=== PATIENT | female | born 1990 | race Two or more races ===

== ENCOUNTER 2018-10-19 16:06 | Emergency (ER) | payer OTHER ==
[~2018-10-19] VITALS: Ht 175.3 cm; Wt 90.7 kg
[2018-10-19 16:25] VITALS: BP 130/91
[2018-10-19] MEDS ORDERED: Cefepime HCl 1 GM in NS 55 ML IV SCH (16:30)
[2018-10-19] MEDS ORDERED: Ertapenem 1 GM in NS 55 ML IV ONE (16:45)
--- NOTE | 2018-10-19 16:51 | Emergency Room Report ---
History of Present Illness General Chief Complaint: Pain Source: Patient Present Illness HPI Patient states that she has had a nephrostomy tube in her left kidney for the past 10 years. She has a history of UVJ obstruction. She states that she was admitted to another hospital 3 days ago. She was found to have Escherichia coli bacteremia. She states that she had a PICC line in place but states she noted that the insertion site was red and swollen and it was bothering her and so she removed the PICC line in her left arm. She states that it looked infected and she has had infected PICC line's previously. She states that she is also had nausea and vomiting and a headache over the past day. She was supposed to be getting ertapenem via her PICC line for the past 2 days but because she removed the PICC line she has not gotten the ertapenem. She has no other complaints. Allergies: Coded Allergies: No Known Allergies (Unverified , 10/19/18) Patient History Past Medical History: none, see triage record Social History: Denies: smoking, alcohol use, drug use Last Menstrual Period: 10/16/18 Reviewed Nursing Documentation: PMH: Agreed; PSxH: Agreed Nursing Documentation-PMH Hx Dialysis: No - nephrostomy tube on left side Review of Systems All Other Systems: negative except mentioned in HPI Physical Exam Vital Signs Date Time Temp Pulse Resp B/P (MAP) Pulse Ox O2 Delivery O2 Flow Rate FiO2 10/19/18 16:15 97.9 95 18 130/91 99 Room Air Sp02 EP Interpretation: reviewed, normal General Appearance: no apparent distress, alert, GCS 15, non-toxic Head: normocephalic, atraumatic Eyes: bilateral eye normal inspection, bilateral eye PERRL ENT: hearing grossly normal, normal pharynx, no angioedema, normal voice Neck: full range of motion, supple/symm/no masses Respiratory: chest non-tender, lungs clear, normal breath sounds, no respiratory distress, no retraction, no accessory muscle use, speaking full sentences Cardiovascular #1: regular rate, rhythm, no edema Gastrointestinal: normal bowel sounds, non tender, soft, non-distended, no guarding, no rebound Rectal: deferred Genitourinary: other - Nephrostomy tube in place draining clear urine. Musculoskeletal: back normal, gait/station normal, normal range of motion, non- tender Neurologic: alert, oriented x3, responsive, motor strength/tone normal, sensory intact, speech normal Psychiatric: judgement/insight normal, memory normal, mood/affect normal, no suicidal/homicidal ideation Skin: normal color, no rash, warm/dry, well hydrated Medical Decision Making Diagnostic Impression: Primary Impression: Flank pain Additional Impressions: Nausea Diarrhea ER Course This patient removed her own PICC line. She states that she has positive blood cultures for another facility. The patient's evaluation here in the emergency Department is benign. Laboratory workup to include a CBC, CMP and urinalysis are unremarkable. The patient is afebrile well-appearing and nontoxic. The patient was given the ertapenem dose for today. I offered the patient admission to the hospital so that she can get PICC line placement tomorrow. However, she declined stating that she will go to her usual hospital and obtain a PICC line tomorrow morning. She states she feels well and does not want to be admitted to the hospital at this time. Given her benign workup and nontoxic evaluation I felt that this was appropriate. I suspect the patient's nausea and diarrhea is secondary to medication side effects. The patient is given close return precautions and follow-up instructions. Please note that this Emergency Department Report was dictated using Sonocinecement tester assistant technology software, occasionally this can lead to erroneous entry secondary to interpretation by the dictation equipment. Laboratory Tests Test 10/19/18 16:35 10/19/18 16:50 10/19/18 19:08 White Blood Count 6.4 K/UL (4.8-10.8) Red Blood Count 4.26 M/UL (4.20-5.40) Hemoglobin 10.5 G/DL (12.0-16.0) L Hematocrit 32.6 % (37.0-47.0) L Mean Corpuscular Volume 76 FL (80-99) L Mean Corpuscular Hemoglobin 24.6 PG (27.0-31.0) L Mean Corpuscular Hemoglobin Concent 32.1 G/DL (32.0-36.0) Red Cell Distribution Width 13.6 % (11.6-14.8) Platelet Count 430 K/UL (150-450) Mean Platelet Volume 5.3 FL (6.5-10.1) L Neutrophils (%) (Auto) 59.7 % (45.0-75.0) Lymphocytes (%) (Auto) 26.8 % (20.0-45.0) Monocytes (%) (Auto) 8.3 % (1.0-10.0) Eosinophils (%) (Auto) 3.9 % (0.0-3.0) H Basophils (%) (Auto) 1.3 % (0.0-2.0) Sodium Level 137 MMOL/L (136-145) Potassium Level 3.6 MMOL/L (3.5-5.1) Chloride Level 102 MMOL/L (98-107) Carbon Dioxide Level 25 MMOL/L (21-32) Anion Gap 10 mmol/L (5-15) Blood Urea Nitrogen 13 mg/dL (7-18) Creatinine 0.7 MG/DL (0.55-1.30) Estimate Glomerular Filtration Rate > 60 mL/min (>60) Glucose Level 101 MG/DL (74-106) Lactic Acid Level 2.00 mmol/L (0.4-2.0) Pending Calcium Level 8.3 MG/DL (8.5-10.1) L Phosphorus Level 3.2 MG/DL (2.5-4.9) Magnesium Level 1.7 MG/DL (1.8-2.4) L Total Bilirubin 0.2 MG/DL (0.2-1.0) Aspartate Amino Transferase (AST) 20 U/L (15-37) Alanine Aminotransferase (ALT) 17 U/L (12-78) Alkaline Phosphatase 79 U/L (46-116) Total Creatine Kinase 56 U/L (26-308) Creatine Kinase MB 0.5 NG/ML (0.0-3.6) Creatine Kinase MB Relative Index 0.8 Troponin I 0.000 ng/mL (0.000-0.056) Total Protein 8.0 G/DL (6.4-8.2) Albumin 3.5 G/DL (3.4-5.0) Globulin 4.5 g/dL Albumin/Globulin Ratio 0.8 (1.0-2.7) L Urine Color Pale yellow Urine Appearance Clear Urine pH 6.5 (4.5-8.0) Urine Specific [place] 1.010 (1.005-1.035) Urine Protein 2+ (NEGATIVE) H Urine Glucose (UA) Negative (NEGATIVE) Urine Ketones Negative (NEGATIVE) Urine Blood 3+ (NEGATIVE) H Urine Nitrite Negative (NEGATIVE) Urine Bilirubin Negative (NEGATIVE) Urine Urobilinogen Normal MG/DL (0.0-1.0) Urine Leukocyte Esterase 2+ (NEGATIVE) H Urine RBC 2-4 /HPF (0 - 2) H Urine WBC 2-4 /HPF (0 - 2) Urine Squamous Epithelial Cells None /LPF (NONE/OCC) Urine Bacteria Occasional /HPF (NONE) EKG Diagnostic Results Rate: normal Rhythm: NSR ST Segments: no acute changes Rhythm Strip Diag. Results EP Interpretation: yes Rate: 80's Rhythm: NSR, no PVC's, no ectopy Last Vital Signs Date Time Temp Pulse Resp B/P (MAP) Pulse Ox O2 Delivery O2 Flow Rate FiO2 10/19/18 16:15 97.9 95 18 130/91 99 Room Air Status: improved Disposition: HOME, SELF-CARE Condition: Improved Scripts No Active Prescriptions or Reported Meds Sade Rome DO Oct 19, 2018 16:51
[2018-10-19 17:09] LABS: BASOPHILS % (AUTO) 1.3 % (0.0-2.0); EOSINOPHILS % (AUTO) 3.9 % (0.0-3.0); HEMATOCRIT 32.6 % (37.0-47.0); HEMOGLOBIN 10.5 G/DL (12.0-16.0); LYMPHOCYTES % (AUTO) 26.8 % (20.0-45.0); MEAN CORPUSCULAR VOLUME 76 FL (80-99); MONOCYTES % (AUTO) 8.3 % (1.0-10.0); NEUTROPHILS % (AUTO) 59.7 % (45.0-75.0); PLATELET COUNT 430 K/UL (150-450); RED BLOOD COUNT 4.26 M/UL (4.20-5.40); RED CELL DISTRIBUTION WIDTH 13.6 % (11.6-14.8); WHITE BLOOD COUNT 6.4 K/UL (4.8-10.8)
[2018-10-19 17:26] LABS: ANION GAP 10 mmol/L (5-15); BLOOD UREA NITROGEN 13 mg/dL (7-18); CALCIUM 8.3 MG/DL (8.5-10.1); CARBON DIOXIDE 25 MMOL/L (21-32); CHLORIDE 102 MMOL/L (98-107); CREATININE 0.7 MG/DL (0.55-1.30); POTASSIUM 3.6 MMOL/L (3.5-5.1); SODIUM 137 MMOL/L (136-145)
[2018-10-19 17:33] LABS: APPEARANCE,URINE CLEAR; BILIRUBIN, URINE NEGATIVE (NEGATIVE); COLOR,URINE PALE YELLOW; GLUCOSE, URINE (UA) NEGATIVE (NEGATIVE); KETONES,URINE NEGATIVE (NEGATIVE); LEUKOCYTE ESTERASE ,URINE 2+ (NEGATIVE); NITRITE,URINE NEGATIVE (NEGATIVE); PH,URINE 6.5 (4.5-8.0); PROTEIN,URINE 2+ (NEGATIVE); UROBILINOGEN,URINE NORMAL MG/DL (0.0-1.0)
[2018-10-19 17:40] LABS: ALANINE AMINOTRANSFERASE 17 U/L (12-78); ALBUMIN 3.5 G/DL (3.4-5.0); ALBUMIN/GLOBULIN RATIO 0.8 (1.0-2.7); ALKALINE PHOSPHATASE 79 U/L (46-116); ASPARTATE AMINO TRANSFERASE 20 U/L (15-37); BILIRUBIN,TOTAL 0.2 MG/DL (0.2-1.0); CKMB 0.5 NG/ML (0.0-3.6); CREATINE KINASE 56 U/L (26-308); PHOSPHORUS 3.2 MG/DL (2.5-4.9)
[2018-10-19 18:20] VITALS: BP 126/59
[2018-10-19] MEDS ORDERED: Ketorolac 30mg Inj IV ONE (18:30)
[2018-10-19 19:35] VITALS: BP 124/66
[2018-10-19 19:55] VITALS: BP 124/66
== END 2018-10-19 19:59 | disposition home or self-care (01) ==
LOC: EMR 18:16
DX: R10.9 Unspecified abdominal pain (principal); R11.2 Nausea with vomiting, unspecified; R19.7 Diarrhea, unspecified; R51 Headache; Z93.6 Other artificial openings of urinary tract status
CPT/HCPCS: 36415; 80053; 81003; 82550; 82553; 83605; 83735; 84100; 84484; 85025; 87040; 93005; 96361; 96365; 96375; 99284; J1335; J1885

== ENCOUNTER 2019-02-03 11:59 | Emergency (ER) | payer OTHER ==
[~2019-02-03] VITALS: Ht 175.3 cm; Wt 104.3 kg
[2019-02-03] MEDS ORDERED: Acetaminophen 500mg (ES) tab ORAL ONE (13:00)
--- NOTE | 2019-02-03 13:10 | NUR ---
ED Nurse Note: Pt from home came in due to left flank that radiates to her LLQ x 3 days with vomiting. Denies diarrhea. Pt is AAO x4, ambulatory with non labored breathing.
--- NOTE | 2019-02-03 13:31 | NUR ---
ED Nurse Note: RN established an IV access but unable to draw blood. Called lab for blood draw.
[2019-02-03 14:14] LABS: APPEARANCE,URINE CLEAR; BILIRUBIN, URINE NEGATIVE (NEGATIVE); COLOR,URINE PALE YELLOW; GLUCOSE, URINE (UA) NEGATIVE (NEGATIVE); KETONES,URINE NEGATIVE (NEGATIVE); LEUKOCYTE ESTERASE ,URINE 1+ (NEGATIVE); NITRITE,URINE NEGATIVE (NEGATIVE); PH,URINE 7 (4.5-8.0); PROTEIN,URINE 1+ (NEGATIVE); UROBILINOGEN,URINE NORMAL MG/DL (0.0-1.0)
[2019-02-03 14:40] LABS: BASOPHILS % (AUTO) 2.9 % (0.0-2.0); EOSINOPHILS % (AUTO) 6.8 % (0.0-3.0); HEMATOCRIT 31.4 % (37.0-47.0); HEMOGLOBIN 9.8 G/DL (12.0-16.0); LYMPHOCYTES % (AUTO) 32.8 % (20.0-45.0); MEAN CORPUSCULAR VOLUME 74 FL (80-99); MONOCYTES % (AUTO) 10.4 % (1.0-10.0); NEUTROPHILS % (AUTO) 47.1 % (45.0-75.0); PLATELET COUNT 217 K/UL (150-450); RED BLOOD COUNT 4.27 M/UL (4.20-5.40); RED CELL DISTRIBUTION WIDTH 21.8 % (11.6-14.8); WHITE BLOOD COUNT 4.1 K/UL (4.8-10.8)
[2019-02-03 15:04] LABS: ANION GAP 12 mmol/L (5-15); BLOOD UREA NITROGEN 9 mg/dL (7-18); CALCIUM 8.1 MG/DL (8.5-10.1); CARBON DIOXIDE 21 MMOL/L (21-32); CHLORIDE 105 MMOL/L (98-107); CREATININE 0.5 MG/DL (0.55-1.30); SODIUM 138 MMOL/L (136-145)
[2019-02-03 15:09] LABS: ALANINE AMINOTRANSFERASE 13 U/L (12-78); ALBUMIN 3.3 G/DL (3.4-5.0); ALBUMIN/GLOBULIN RATIO 1.1 (1.0-2.7); ALKALINE PHOSPHATASE 64 U/L (46-116); ASPARTATE AMINO TRANSFERASE 22 U/L (15-37); BILIRUBIN,TOTAL 0.2 MG/DL (0.2-1.0)
--- NOTE | 2019-02-03 15:14 | NUR ---
HAND-OFF: Report given to Rajeev FOX.
--- NOTE | 2019-02-03 15:15 | NUR ---
ED Nurse Note: REceived patient from RUDDY Chu, patient at no distress at this time, waiting for ultrasound
[2019-02-03 15:23] VITALS: BP 114/72
--- NOTE | 2019-02-03 16:15 | NUR ---
ED Nurse Note: Called X-ray for ultrasuond, states they will call back when an instructional coach tech is available
--- NOTE | 2019-02-03 19:11 | Emergency Room Report ---
History of Present Illness General Chief Complaint: Abdominal Pain Source: Patient (Elisa Salas) Present Illness HPI 28-year-old female with significant past medical history of chronic kidney disease and a tube insertion here complaining of diffuse abdominal pain 3 days mainly in the left lower quadrant. Patient raises concerns about possible as she was last sexually active 3 weeks ago and her last menstrual period was January 03. Patient woke up this morning with vomiting and 3 bouts of nonbloody diarrhea. Complains of low-grade fever denies all URI symptoms. Complaints of urinary frequency however denies dysuria hematuria. Denies vaginal spotting, clotting, bleeding. Denies recent travel. Patient makes regular visits with her photo optics technician and urologist. Has not been given any antibiotics recently. Denies syncope, dizziness, headache, SOB, chest pain palpitations. (Elisa Salas) Allergies: Coded Allergies: No Known Allergies (Unverified , 10/19/18) Patient History Past Medical History: see triage record, dialysis Past Surgical History: none Pertinent Family History: none Last Menstrual Period: JAN 03, 2019 Now: Yes : 2 Reviewed Nursing Documentation: PMH: Agreed; PSxH: Agreed (Elisa Salas) Nursing Documentation-PMH Past Medical History: No History, Except For Hx Dialysis: No - nephrostomy tube on left side (Elisa Salas) Review of Systems All Other Systems: negative except mentioned in HPI (Elisa Salas) Physical Exam Vital Signs Date Time Temp Pulse Resp B/P (MAP) Pulse Ox O2 Delivery O2 Flow Rate FiO2 02/03/19 12:28 98.2 89 22 104/74 98 Room Air Sp02 EP Interpretation: reviewed, normal General Appearance: normal inspection, well appearing, no apparent distress Head: normocephalic Eyes: bilateral eye normal inspection, bilateral eye PERRL ENT: normal ENT inspection, normal pharynx Neck: normal inspection, full range of motion, supple Respiratory: normal inspection, chest non-tender, lungs clear, no rhonchi, no wheezing Cardiovascular #1: normal inspection, normal peripheral pulses, no edema, no murmur, normal capillary refill Gastrointestinal: no mass, no organomegaly, no peritonitis, no bruit, non- distended, no guarding, no pulsatile mass, rebound - left lower quadr Rectal: deferred Genitourinary: no CVA tenderness, other - unclogged tube left flank Musculoskeletal: normal inspection, back normal, digits/nails normal Neurologic: normal inspection, alert, oriented x3 Psychiatric: normal inspection, judgement/insight normal, mood/affect normal Skin: normal inspection, normal color, no rash, warm/dry Lymphatic: normal inspection, no adenopathy (Elisa Salas) Medical Decision Making PA Attestation Diagnoses and treatment plans are reviewed and discussed with my supervising physician Dr. Kevin (Elisa Salas) PA Attestation Please refer to the history and documentation for the full input At this time patient's workup was also reviewed by myself Abdominal ultrasound on the renal aspect does not reveal any hydronephrosis Pelvic ultrasound was discussed with food equipment service technician does not show any obvious large amount of free fluid However given the patient's low beta Quant level and ectopic cannot be fully ruled out at this time Patient otherwise does appear comfortable ambulating in the emergency room without any active discomfort she requires close repeat beta Quant level along with ultrasonography by primary physician the next several days (Antionette Kevin DO) Diagnostic Impression: Primary Impression: Additional Impressions: UTI (urinary tract infection) Iron deficiency anemia Renal function impairment Viral gastroenteritis ER Course 28-year-old female with significant past medical history of chronic kidney disease and a tube insertion here complaining of diffuse abdominal pain 3 days mainly in the left lower quadrant. Patient raises concerns about possible as she was last sexually active 3 weeks ago and her last menstrual period was January 03. Patient woke up this morning with vomiting and 3 bouts of nonbloody diarrhea. Complains of low-grade fever denies all URI symptoms. Complaints of urinary frequency however denies dysuria hematuria. Denies vaginal spotting, clotting, bleeding. Denies recent travel. Patient makes regular visits with her photo optics technician and urologist. Has not been given any antibiotics recently. Denies syncope, dizziness, headache, SOB, chest pain palpitations. Ddx considered but are not limited to ectopic , UTI, pylonephritis, hydronephrosis, normal IUP, viral gastroentritis Vital signs: are WNL, pt. is afebrile H&PE are most consistent with viral gastroentritis, UTI, IUP, iron deficiency anemia, ORDERS ferrous sulfate, macrobid ED INTERVENTIONS: NS bolus, tylenol, DISCHARGE: At this time pt. is stable for d/c to home. Will provide printed patient care instructions, and any necessary prescriptions. Care plan and follow up instructions have been discussed with the patient prior to discharge. f/u with OB in 48 hours for repeat beta Hcg and OB US Hgb 9, positive leuk UA, elevated lipase, posiitve beta HCG (Elisa Salas) CT/MRI/US Diagnostic Results CT/MRI/US Diagnostic Results : Imaging Test Ordered: pelvic and renal Impression US PELVIS: Uterus appears heterogeneous, nonspecific. Endometrium is within normal limits for patient's age. Bilateral ovaries are not enlarged. No ovarian torsion. Trace free fluid, possibly physiologic. US ABDOMEN: Stented left kidney. No hydronephrosis or nephrolithiasis bilaterally. (Elisa Salas) Last Vital Signs Date Time Temp Pulse Resp B/P (MAP) Pulse Ox O2 Delivery O2 Flow Rate FiO2 02/03/19 15:23 98.2 67 22 114/72 98 Room Air (Elisa Salas) Disposition: HOME, SELF-CARE Condition: Stable Scripts Ferrous Sulfate* (FERROUS SULFATE*) 325 Mg Tablet 325 MG ORAL TWICE A DAY, #60 TAB 0 Refills Prov: Elisa Salas 02/03/19 Nitrofurantoin Monohyd/M-Cryst* (MACROBID 100 MG*) 100 Mg Capsule 100 MG ORAL EVERY 12 HOURS for 7 Days, #14 CAP Prov: Elisa Salas 02/03/19 Referrals: [facility],REFERRING (PCP) Patient Instructions: Abdominal Pain During , Iron Deficiency Anemia, Adult, Ovarian Cyst, [id number] Additional Instructions: follow up with OB and photo optics technician/ urologist Elisa Salas Feb 03, 2019 19:11 Antionette Kevin DO Feb 03, 2019 19:20
[2019-02-03] MEDS ORDERED: NITROFURANTOIN100 M2 ORAL (19:13)
[2019-02-03] MEDS ORDERED: FERROUS SULFAT325 MG ORAL (19:13)
[2019-02-03 19:30] VITALS: BP 114/72
--- NOTE | 2019-02-03 19:30 | NUR ---
ER DISCHARGE NOTE: Patient is cleared to be discharged per ERMD, pt is aox4, on room air, with stable vital signs. pt was given dc and prescription instructions, pt was able to verbalize understanding, pt id band and iv site removed without complications. pt is able to ambulate with steady gait. pt took all belongings.
== END 2019-02-03 19:30 | disposition home or self-care (01) ==
LOC: EMR 15:20
DX: O23.41 Unspecified infection of urinary tract in pregnancy, first trimester (principal); Z3A.00 Weeks of gestation of pregnancy not specified; O99.011 Anemia complicating pregnancy, first trimester; D50.9 Iron deficiency anemia, unspecified; O99.611 Diseases of the digestive system complicating pregnancy, first trimester; A08.4 Viral intestinal infection, unspecified; N28.9 Disorder of kidney and ureter, unspecified
CPT/HCPCS: 36415; 76770; 76801; 76830; 80053; 81003; 81025; 83690; 84702; 85025; 86710; 96360; 99284

== ENCOUNTER 2020-12-10 16:22 | Emergency (ER) | payer OTHER ==
[~2020-12-10] VITALS: Ht 175.3 cm; Wt 111.1 kg
[~2020-12-10 16:22] MED LIST: FERROUS SULFAT325 MG ORAL; NITROFURANTOIN100 M2 ORAL
[2020-12-10] MEDS ORDERED: Ketorolac 30mg Inj IV ONE (16:45)
--- NOTE | 2020-12-10 16:50 | Emergency Room Report ---
History of Present Illness General Chief Complaint: Abdominal Pain Source: Patient Present Illness HPI Patient is a 30-year-old obese female history of kidney stones who presents to the ER complaining of left-sided flank pain for the past 2 days. She complains of nausea and vomiting. She denies any fever or chills. She denies any diarrhea. She complains of dysuria and occasional streaks of blood. She denies any chest pain or shortness of breath. She states that she tried taking [place] at home but complains of persistent pain. Allergies: Coded Allergies: No Known Allergies (Unverified , 10/19/18) COVID-19 Screening Contact w/high risk pt: No Experienced COVID-19 symptoms?: No COVID-19 Testing performed LITHOGRAPHIC PHOTOGRAPHER APPRENTICE: No Patient History Last Menstrual Period: 11/20 Now: No Reviewed Nursing Documentation: PMH: Agreed; PSxH: Agreed Nursing Documentation-PMH Past Medical History: No History, Except For Hx Dialysis: No - nephrostomy tube on left side Review of Systems All Other Systems: negative except mentioned in HPI Physical Exam Vital Signs Date Time Temp Pulse Resp B/P (MAP) Pulse Ox O2 Delivery O2 Flow Rate FiO2 12/10/20 16:32 98.4 91 18 120/87 (98) 96 Sp02 EP Interpretation: reviewed, normal General Appearance: alert, GCS 15, non-toxic, mild distress Head: normocephalic, atraumatic Eyes: bilateral eye normal inspection, bilateral eye PERRL ENT: hearing grossly normal, normal pharynx, no angioedema, normal voice Neck: full range of motion, supple/symm/no masses Respiratory: chest non-tender, lungs clear, normal breath sounds, speaking full sentences Cardiovascular #1: regular rate, rhythm, no edema Gastrointestinal: normal bowel sounds, non tender, soft, non-distended, no guarding, no rebound Rectal: deferred Genitourinary: CVA tenderness (L) Musculoskeletal: normal range of motion Neurologic: cloth finishing range back tender III-XII nml as tested, oriented x3 Psychiatric: no suicidal/homicidal ideation Skin: no rash Lymphatic: no adenopathy Medical Decision Making Diagnostic Impression: Primary Impression: Flank pain Additional Impression: Hydronephrosis ER Course Patient's UA is negative. No signs of infection or blood. Patient's CT demonstrates hydronephrosis on the left side with no stones. This is probably sequela from her prior kidney stone which she states is on the left side. I have given the patient a copy of her CAT scan results. She states she has a urologist that she can follow-up with. I have given her intramuscular morphine which helped with her pain. She will be given a prescription for Percocet. After discussing risks and benefits of further diagnostics, treatment plans, as well as indications for and risks of admission, the patient is agreeable to being discharged home. I have explained that their evaluation and treatment in the emergency department today is an important step towards them achieving better health but that their evaluation today is not intended to replace further evaluation and treatment by a physician in their local clinic. I have explained that while the current findings suggest no immediate life threatening emergency they will require further evaluation and treatment by a physician of their choice in their area. They understand that it will be necessary for them to review the final reports of their ED visit with their clinic physician. We have reviewed indications for return to the Emergency Department. I have explained that additional time may need to pass and/or additional testing as an outpatient may be necessary before a definitive diagnosis can be made. They tell me they are willing to follow up as instructed within the timeframe I recommend. They appear to understand what we discussed. Additionally they understand that if they are unable to be seen by an outpatient physician they are welcome, and in fact should, return to the Emergency Department for a repeat evaluation. The patient is stable at time of discharge. Laboratory Tests Test 12/10/20 16:50 Urine Color Pale yellow Urine Appearance Clear Urine pH 7 (4.5-8.0) Urine Specific [place] 1.010 (1.005-1.035) Urine Protein Negative (NEGATIVE) Urine Glucose (UA) Negative (NEGATIVE) Urine Ketones Negative (NEGATIVE) Urine Blood Negative (NEGATIVE) Urine Nitrite Negative (NEGATIVE) Urine Bilirubin Negative (NEGATIVE) Urine Urobilinogen Normal MG/DL (0.0-1.0) Urine Leukocyte Esterase Negative (NEGATIVE) Urine HCG, Qualitative Negative (NEGATIVE) Urine Opiates Screen Negative (NEGATIVE) Urine Barbiturates Screen Negative (NEGATIVE) Phencyclidine (PCP) Screen Negative (NEGATIVE) Urine Amphetamines Screen Negative (NEGATIVE) Urine Benzodiazepines Screen Negative (NEGATIVE) Urine Cocaine Screen Negative (NEGATIVE) Urine Marijuana (THC) Screen Negative (NEGATIVE) Last Vital Signs Date Time Temp Pulse Resp B/P (MAP) Pulse Ox O2 Delivery O2 Flow Rate FiO2 12/10/20 16:32 98.4 91 18 120/87 (98) 96 Disposition: HOME, SELF-CARE Condition: Stable Scripts Oxycodone/Acetaminophen 5-325* (PERCOCET 5-325 MG TABLET*) 1 Each Tablet 1 TAB ORAL Q6H PRN for For Pain, #12 TAB 0 Refills Prov: Yue Luna M.D. 12/10/20 Additional Instructions: The patient was provided with discharge instructions, notified to follow-up with a primary care doctor and or specialist in the next 24-48 hours, and to return to the ED if they have worsening of their symptoms. Please note that this report is being documented using [employer]zoom technology. This can lead to erroneous entry secondary to incorrect interpretation by the dictating instrument. Yue Luna M.D. Dec 10, 2020 16:50
[2020-12-10] MEDS ORDERED: fentaNYL 100 mcg/2 mL IV ONE (17:00)
[2020-12-10 17:30] VITALS: BP 114/76
--- NOTE | 2020-12-10 17:53 | Diagnostic Imaging Report ---
EXAM: CT Abdomen and Pelvis Without Intravenous Contrast CLINICAL HISTORY: ABD PAIN TECHNIQUE: Axial computed tomography images of the abdomen and pelvis without intravenous contrast. CTDI is 19.1 mGy and DLP is 1088.1 mGy-cm. One or more of the following dose reduction techniques were used: automated exposure control, adjustment of the mA and/or kV according to patient size, use of iterative reconstruction technique. COMPARISON: 02/03/2019. FINDINGS: Lung bases: Minimal scarring and subsegmental atelectasis at the lung bases. Minimal subsegmental atelectasis at the lingular region. Pleural space: No pleural effusions. Heart: Heart is normal in size. ABDOMEN: Liver: The liver and the spleen are normal in contour. Gallbladder and bile ducts: Status post cholecystectomy. No ductal dilation. Pancreas: See below. Spleen: See above. Adrenals: The adrenal glands, the head, body, tail of the pancreas are unremarkable. Kidneys and ureters: Right kidney is unremarkable. Moderate to severe left hydronephrosis. Dilatation of the left collecting system. Stomach and bowel: Mild to moderate quantity of ingested material in the stomach. Moderate quantity of stool throughout the colon. No obstruction. No mucosal thickening. PELVIS: Appendix: The appendix is seen on coronal images 51 through 53 and is unremarkable. Bladder: Bladder is underdistended. No stones. Reproductive: Unremarkable as visualized. ABDOMEN and PELVIS: Intraperitoneal space: Unremarkable. No free air. No significant fluid collection. Bones/joints: No spondylolysis or spinal listhesis appeared Sacrum and coccyx are unremarkable. No acute fracture. No dislocation. Soft tissues: Ischiorectal fat is clean. Vasculature: Unremarkable. No abdominal aortic aneurysm. Lymph nodes: No pelvic or inguinal lymphadenopathy. IMPRESSION: 1. Status post cholecystectomy. 2. Moderate hydronephrosis of the left kidney. Dilatation of the left renal pelvis. No renal calculus is noted. Findings may be a manifestation of previous obstruction of the left kidney. Left ureteral pelvic junction obstruction cannot be entirely excluded however. I favor the possibility that the left kidney had been previously obstructed and the left renal collecting system remains patulous. The left kidney had been stented on the previous ultrasound study of 02/03/2019. 3. Appendix is unremarkable. 4. No bowel obstruction.
[2020-12-10 17:57] LABS: APPEARANCE,URINE CLEAR; BILIRUBIN, URINE NEGATIVE (NEGATIVE); COLOR,URINE PALE YELLOW; GLUCOSE, URINE (UA) NEGATIVE (NEGATIVE); KETONES,URINE NEGATIVE (NEGATIVE); LEUKOCYTE ESTERASE ,URINE NEGATIVE (NEGATIVE); NITRITE,URINE NEGATIVE (NEGATIVE); PH,URINE 7 (4.5-8.0); PROTEIN,URINE NEGATIVE (NEGATIVE); UROBILINOGEN,URINE NORMAL MG/DL (0.0-1.0)
[2020-12-10 18:18] VITALS: BP 110/58
--- NOTE | 2020-12-10 18:19 | NUR ---
ED Nurse Note: pt extremly hard stick. attempted several times with 2 other RN's. aware and is going to give meds IM.
[2020-12-10] MEDS ORDERED: PERCOCET 5-3251 EACH ORAL (18:23)
[2020-12-10] MEDS ORDERED: Morphine Sulfate 2mg/ml Inj(IV/IM USE ONLY) IM ONE (18:30)
--- NOTE | 2020-12-10 18:42 | NUR ---
ER DISCHARGE NOTE: Patient is cleared to be discharged per ERMD, pt is aox4, on room air, with stable vital signs. pt was given dc and prescription instructions, pt was able to verbalize understanding. pt is able to ambulate with steady gait. pt took all belongings. no complications with im injection. pt will f/u with her
== END 2020-12-10 18:43 | disposition home or self-care (01) ==
LOC: EMR 17:30
DX: R10.9 Unspecified abdominal pain (principal); N13.30 Unspecified hydronephrosis; Z87.442 Personal history of urinary calculi; Z93.6 Other artificial openings of urinary tract status
CPT/HCPCS: 74176; 80307; 81003; 81025; 96361; 96372; 96374; 96375; J2270; Z7502; 99284; J2405